=== PATIENT | female | born 1955 | race Caucasian/White ===

== ENCOUNTER 2020-09-12 00:29 | Observation (INO) ==
[2020-09-12 01:08] LABS: Basophils % 0.5 % (0.0-0.8); Eosinophils # 0.1 10*3/uL (0.0-0.87); Eosinophils % 1.4 % (0.00-10.9); Hematocrit 46.5 VOL% (35.7-47.0); Hemoglobin 15.9 GM/DL (12.0-16.0); Immature Granulocytes % 0.1 %; Immature Granulocytes Absolute 0.01 #; Mean Corpuscular HGB Conc 34.2 GM/DL (32-36); Mean Corpuscular Volume 92.8 FL (87-102); Mean Platelet Volume 8.8 FL (9.6-12.0); Monocytes % 8.5 % (1.7-12.7); Neutrophils % 51.5 % (38.7-73.9); Platelet Count 318 T/CUMM (130-400); Red Blood Count 5.01 MC/CUMM (3.8-5.5); Red Cell Distribution Width 15.3 % (9.3-17.3)
[2020-09-12] MEDS ORDERED: ALBUTEROL/IPRATROPIUM 3 ML NEB RESP TX STA ×2 (01:20→02:21)
[2020-09-12] MEDS ORDERED: methylPREDNISolone SOD SUC 125 MG/2 ML VIAL IV STA (01:20)
[2020-09-12 01:45] LABS: Albumin 3.7 G/DL (3.4-5.0); Bilirubin,Total 0.6 MG/DL (0.2-1.0); Calcium 9.9 MG/DL (8.5-10.1); Total Protein 7.8 G/DL (6.4-8.3)
[2020-09-12] MEDS ORDERED: MORPHINE 4 MG/1 ML VIAL IV STA (02:21)
[2020-09-12] MEDS ORDERED: ONDANSETRON 4 MG/2 ML VIAL IV ONE (02:21)
[2020-09-12] MEDS ORDERED: DEXTROSE 50% 25 GM/50 ML VIAL IV PRN (02:55)
[2020-09-12] MEDS ORDERED: ALBUTEROL 2.5 MG/3 ML NEB RESP TX PRN (02:55)
[2020-09-12] MEDS ORDERED: ONDANSETRON 4 MG/2 ML VIAL IV PRN (02:55)
[2020-09-12] MEDS ORDERED: ACETAMINOPHEN 325 MG TABLET PO PRN (02:55)
[2020-09-12] MEDS ORDERED: GLUCAGON 1 MG VIAL IM PRN (02:55)
[2020-09-12] MEDS ORDERED: DOCUSATE SODIUM 100 MG CAPSULE PO PRN (02:55)
[2020-09-12] MEDS ORDERED: AZITHROMYCIN INJ 500 MG in SODIUM CHLORIDE 0.9% 250 ML IV SCH (03:00)
[2020-09-12] MEDS ORDERED: MAGNESIUM SULF RIDER 4 GM in PREMIX 1 EACH IV PRN (03:00)
[2020-09-12] MEDS ORDERED: MAGNESIUM SULF RIDER 2 GM in PREMIX 1 EACH IV PRN (03:00)
[2020-09-12 03:13] VITALS: BP 147/82
[2020-09-12] MEDS ORDERED: ENOXAPARIN 40 MG/0.4 ML SYRINGE SUBCUT SCH (06:00)
[2020-09-12] MEDS ORDERED: LEVOTHYROXINE 112 MCG TABLET PO SCH (06:00)
[2020-09-12] MEDS: ALBUTEROL/IPRATROPIUM 3 ML NEB RESP TX SCH ×2 (07:35→14:01)
[2020-09-12] MEDS ORDERED: predniSONE 20 MG TABLET PO SCH (08:00)
[2020-09-12] MEDS ORDERED: FLUoxetine 20 MG CAPSULE PO SCH (09:00)
[2020-09-12] MEDS ORDERED: amLODIPine 5 MG TABLET PO SCH (09:00)
[2020-09-12] MEDS ORDERED: GABAPENTIN 400 MG CAPSULE PO SCH (09:00)
[2020-09-12] MEDS ORDERED: hydroCHLOROthiazide 25 MG TABLET PO SCH (09:00)
[2020-09-12] MEDS ORDERED: PANTOPRAZOLE 40 MG TABLET PO SCH (09:00)
[2020-09-12] MEDS: INSULIN LISPRO 100 UNIT/ML SUBCUT SCH ×2 (09:54→13:19)
[2020-09-12] MEDS: POTASSIUM CHLORIDE 20 MEQ TABLET PO PRN ×2 (09:54→13:20)
== END 2020-09-12 14:56 ==
LOC: N.ED 00:29 → N.EDINP 00:29 → N.TELEN 04:33
PROVIDERS: ADMIT Internal Medicine; ATTEND Internal Medicine

== ENCOUNTER 2021-02-21 16:38 | Inpatient (IN) ==
[2021-02-21 18:14] LABS: Basophils % 0.7 % (0.0-0.8); Eosinophils % 0.2 % (0.00-10.9); Hematocrit 59.9 VOL% (35.7-47.0); Immature Granulocytes % 0.2 %; Immature Granulocytes Absolute 0.01 #; Lymphocytes # 1.7 10*3/uL (1.4-4.0); Lymphocytes % 27.9 % (21.3-54.2); Mean Corpuscular HGB Conc 34.4 GM/DL (32-36); Mean Corpuscular Volume 91.7 FL (87-102); Mean Platelet Volume 10.3 FL (9.6-12.0); Monocytes % 12.4 % (1.7-12.7); Neutrophils % 58.6 % (38.7-73.9); Platelet Count 215 T/CUMM (130-400); Red Blood Count 6.53 MC/CUMM (3.8-5.5); Red Cell Distribution Width 18.4 % (9.3-17.3); White Blood Count 6.1 T/CUMM (4-12)
[2021-02-21 18:17] LABS: Hemoglobin 20.6 GM/DL (12.0-16.0)
[2021-02-21 18:19] LABS: Bilirubin,Urine Negative (Negative); Blood, Urine Negative (Negative); Glucose,Urine (UA) >=500 mg/dL (Negative); Hyaline Casts,Urine 3 /LPF (0-3); Ketones,Urine 80 mg/dL (Negative); Mucus,Urine Few /LPF (Occasional); Nitrite,Urine Negative (Negative); Protein,Urine 100 MG/DL; RBC,Urine <1 /HPF (0-4); Squamous Epithelial Cell,Urine Occasional /HPF (0-10); Urine Appearance CLEAR (Clear); Urine Color Yellow (Yellow); Urine Specific Gravity 1.021 (1.001-1.035)
[2021-02-21] MEDS ORDERED: SODIUM CHLORIDE 0.9% 1,000 ML IV STA (18:20)
[2021-02-21 18:22] LABS: Barbiturates Screen,Urine Negative (Negative); Benzodiazepines Screen,Urine Negative (Negative); Cannabinoid Screen,Urine Negative (Negative); Opiate Screen,Urine Negative (Negative); Phencyclidine Screen,Urine Negative (Negative)
[2021-02-21 18:48] LABS: INR 1.5; PT Patient Result 16.7 SECS (10.5-12.0); Partial Thromboplastin Time 32.4 SECS (23.9-33.8)
[2021-02-21 18:54] LABS: Alanine Aminotransferase 44 U/L (13-56); Albumin 4.1 G/DL (3.4-5.0); Alkaline Phosphatase 149 U/L (45-117); Aspartate Amino Transferase 46 U/L (0-37); Blood Urea Nitrogen 14 MG/DL (7-18); Calcium 10.9 MG/DL (8.5-10.1); Carbon Dioxide 22 MMOL/L (21-32); Estimated Glom Filtration Rate 54 ML/MIN; Glucose 55 MG/DL (74-106); Osmolality,Calculated 275.5 MOS/KG (273-304); Potassium 3.9 MMOL/L (3.5-5.1); Sodium 139 MMOL/L (136-145); Total Protein 8.2 G/DL (6.4-8.2)
[2021-02-21 19:20] LABS: Acetaminophen < 2.0 UG/ML (10-30); Salicylate < 2.8 MG/DL (2.8-20)
[2021-02-21] MEDS ORDERED: DEXTROSE 10% 250 ML IV ONE (20:16)
[2021-02-21] MEDS: DEXTROSE 10% 1,000 ML IV SCH (20:53)
[2021-02-21] MEDS ORDERED: POTASSIUM CHLORIDE 20 MEQ TABLET PO PRN (21:13)
[2021-02-21] MEDS ORDERED: MAGNESIUM SULF RIDER 4 GM/100 ML PREMIX IV PRN (21:13)
[2021-02-21] MEDS ORDERED: MAGNESIUM SULF RIDER 2 GM/50 ML PREMIX IV PRN (21:13)
[2021-02-21] MEDS ORDERED: DOCUSATE SODIUM 100 MG CAPSULE PO PRN (21:17)
[2021-02-21] MEDS ORDERED: ONDANSETRON 4 MG/2 ML VIAL IV PRN (21:17)
[2021-02-21] MEDS ORDERED: ACETAMINOPHEN 325 MG TABLET PO PRN (21:17)
[2021-02-21] MEDS ORDERED: DEXTROSE 50% 25 GM/50 ML VIAL IV PRN (21:17)
[2021-02-21] MEDS ORDERED: GLUCAGON 1 MG VIAL IM PRN (21:17)
[2021-02-21] MEDS: ENOXAPARIN 40 MG/0.4 ML SYRINGE SUBCUT SCH (23:27)
[2021-02-21] MEDS: SODIUM CHLORIDE 0.9% 1,000 ML IV SCH (23:27)
[2021-02-22 05:27] LABS: Basophils % 0.4 % (0.0-0.8); Eosinophils % 0.4 % (0.00-10.9); Hematocrit 47.8 VOL% (35.7-47.0); Immature Granulocytes % 0.2 %; Immature Granulocytes Absolute 0.01 #; Lymphocytes # 1.5 10*3/uL (1.4-4.0); Lymphocytes % 29.2 % (21.3-54.2); Mean Corpuscular HGB Conc 35.6 GM/DL (32-36); Mean Corpuscular Volume 89.3 FL (87-102); Mean Platelet Volume 10.4 FL (9.6-12.0); Monocytes % 15.6 % (1.7-12.7); Neutrophils % 54.2 % (38.7-73.9); Platelet Count 188 T/CUMM (130-400); Red Blood Count 5.35 MC/CUMM (3.8-5.5); White Blood Count 5.2 T/CUMM (4-12)
[2021-02-22 05:47] LABS: Calcium 9.6 MG/DL (8.5-10.1); Osmolality,Calculated 276.4 MOS/KG (273-304); Potassium 3.1 MMOL/L (3.5-5.1)
[2021-02-22 05:55] LABS: Lymphocytes 28 % (20-55); Platelet Estimate Adequate; Segmented Neutrophils 58 % (50-85); Total Cells Counted 100
[2021-02-22] MEDS: LEVOTHYROXINE 112 MCG TABLET PO SCH (06:02)
[2021-02-22] MEDS: SODIUM CHLORIDE 0.9% 1,000 ML IV SCH ×2 (07:46→08:34)
[2021-02-22] MEDS: INSULIN LISPRO 100 UNIT/ML SUBCUT SCH ×4 (07:52→21:22)
[2021-02-22] MEDS: DEXTROSE 10% 1,000 ML IV SCH (07:53)
[2021-02-22] MEDS: PANTOPRAZOLE 40 MG TABLET PO SCH (08:12)
[2021-02-22] MEDS: amLODIPine 5 MG TABLET PO SCH (08:12)
[2021-02-22] MEDS: FLUoxetine 20 MG CAPSULE PO SCH (09:41)
[2021-02-22] MEDS: SIMVASTATIN 10 MG TABLET PO SCH (21:23)
[2021-02-22] MEDS: ENOXAPARIN 40 MG/0.4 ML SYRINGE SUBCUT SCH (21:25)
[2021-02-23] MEDS: SODIUM CHLORIDE 0.9% 1,000 ML IV SCH ×2 (00:13→04:57)
[2021-02-23 06:11] LABS: Calcium 7.8 MG/DL (8.5-10.1); Osmolality,Calculated 282.7 MOS/KG (273-304); Risk Ratio 2.73; VLDL CHOLESTEROL 12.4 MG/DL
[2021-02-23 06:13] LABS: Potassium 2.4 MMOL/L (3.5-5.1)
[2021-02-23 06:20] LABS: Basophils % 0.8 % (0.0-0.8); Eosinophils % 0.8 % (0.00-10.9); Hematocrit 42.2 VOL% (35.7-47.0); Immature Granulocytes % 0.3 %; Immature Granulocytes Absolute 0.01 #; Lymphocytes # 1.3 10*3/uL (1.4-4.0); Mean Corpuscular HGB Conc 34.4 GM/DL (32-36); Mean Corpuscular Volume 92.1 FL (87-102); Mean Platelet Volume 10.7 FL (9.6-12.0); Monocytes % 14.7 % (1.7-12.7); Neutrophils % 48.4 % (38.7-73.9); Platelet Count 166 T/CUMM (130-400); Red Blood Count 4.58 MC/CUMM (3.8-5.5); Red Cell Distribution Width 16.8 % (9.3-17.3)
[2021-02-23] MEDS: LEVOTHYROXINE 112 MCG TABLET PO SCH (06:21)
[2021-02-23 06:30] LABS: Hemoglobin 14.5 GM/DL (12.0-16.0); White Blood Count 3.6 T/CUMM (4-12)
[2021-02-23] MEDS: INSULIN LISPRO 100 UNIT/ML SUBCUT SCH ×4 (07:10→20:46)
[2021-02-23] MEDS: amLODIPine 5 MG TABLET PO SCH (08:44)
[2021-02-23] MEDS: ASPIRIN CHEW 81 MG TABLET PO SCH (08:44)
[2021-02-23] MEDS: FLUoxetine 20 MG CAPSULE PO SCH ×2 (08:44→20:47)
[2021-02-23] MEDS: PANTOPRAZOLE 40 MG TABLET PO SCH (08:44)
[2021-02-23] MEDS: POTASSIUM CHLORIDE 20 MEQ TABLET PO SCH ×4 (08:44→20:47)
[2021-02-23] MEDS: buPROPion XL 150 MG TABLET PO SCH (14:59)
[2021-02-23] MEDS: CYPROHEPTADINE 4 MG TABLET PO SCH ×2 (14:59→20:47)
[2021-02-23] MEDS: DEXT 5% NACL 0.45% KCL 20 MEQ 20 MEQ/1,000 ML BAG IV SCH (16:16)
[2021-02-23 19:08] LABS: Calcium 9.8 MG/DL (8.5-10.1); Osmolality,Calculated 277.4 MOS/KG (273-304); Potassium 4.4 MMOL/L (3.5-5.1)
[2021-02-23] MEDS: ENOXAPARIN 40 MG/0.4 ML SYRINGE SUBCUT SCH (20:46)
[2021-02-23] MEDS: SIMVASTATIN 10 MG TABLET PO SCH (20:47)
[2021-02-24] MEDS: LEVOTHYROXINE 112 MCG TABLET PO SCH (06:03)
[2021-02-24] MEDS: INSULIN LISPRO 100 UNIT/ML SUBCUT SCH ×4 (08:59→22:22)
[2021-02-24] MEDS ORDERED: CHOLECALCIFEROL 1,000 UNIT TABLET PO SCH (09:00)
[2021-02-24] MEDS: amLODIPine 5 MG TABLET PO SCH (10:23)
[2021-02-24] MEDS: PANTOPRAZOLE 40 MG TABLET PO SCH (10:23)
[2021-02-24] MEDS: buPROPion XL 150 MG TABLET PO SCH (10:23)
[2021-02-24] MEDS: FLUoxetine 20 MG CAPSULE PO SCH (10:23)
[2021-02-24] MEDS: CYPROHEPTADINE 4 MG TABLET PO SCH (10:24)
[2021-02-24] MEDS: ASPIRIN CHEW 81 MG TABLET PO SCH (10:24)
[2021-02-24] MEDS: POTASSIUM CHLORIDE 20 MEQ TABLET PO SCH ×2 (10:24→22:46)
[2021-02-24] MEDS: DEXT 5% NACL 0.45% KCL 20 MEQ 20 MEQ/1,000 ML BAG IV SCH (10:28)
[2021-02-24] MEDS: ENOXAPARIN 40 MG/0.4 ML SYRINGE SUBCUT SCH (22:45)
[2021-02-24] MEDS: SIMVASTATIN 10 MG TABLET PO SCH (22:46)
[2021-02-24] MEDS: CHOLESTYRAMINE 4 GM PACK PO SCH (22:46)
[2021-02-25] MEDS: DEXT 5% NACL 0.45% KCL 20 MEQ 20 MEQ/1,000 ML BAG IV SCH (01:38)
[2021-02-25 05:24] LABS: Basophils % 0.5 % (0.0-0.8); Eosinophils % 0.5 % (0.00-10.9); Hematocrit 46.7 VOL% (35.7-47.0); Hemoglobin 16.1 GM/DL (12.0-16.0); Immature Granulocytes % 0.3 %; Immature Granulocytes Absolute 0.01 #; Lymphocytes # 1.5 10*3/uL (1.4-4.0); Lymphocytes % 39.5 % (21.3-54.2); Mean Corpuscular HGB Conc 34.5 GM/DL (32-36); Mean Corpuscular Volume 90.3 FL (87-102); Mean Platelet Volume 10.9 FL (9.6-12.0); Monocytes % 15.8 % (1.7-12.7); Neutrophils % 43.4 % (38.7-73.9); Platelet Count 184 T/CUMM (130-400); Red Blood Count 5.17 MC/CUMM (3.8-5.5); Red Cell Distribution Width 17.2 % (9.3-17.3); White Blood Count 3.8 T/CUMM (4-12)
[2021-02-25 05:36] LABS: Osmolality,Calculated 275.5 MOS/KG (273-304); Potassium 4.1 MMOL/L (3.5-5.1)
[2021-02-25 05:53] LABS: Band Neutrophils 1 % (0-10); Eosinophils 3 % (0-10); Hypochromasia Slight; Lymphocytes 41 % (20-55); Microcytosis 1+; Segmented Neutrophils 44 % (50-85); Total Cells Counted 100
[2021-02-25 05:54] LABS: Ovalocytes Slight; Platelet Estimate Adequate
[2021-02-25] MEDS: LEVOTHYROXINE 112 MCG TABLET PO SCH (06:08)
[2021-02-25 08:22] VITALS: BP 146/97
[2021-02-25] MEDS ORDERED: FLUoxetine 20 MG CAPSULE PO SCH (09:00)
[2021-02-25] MEDS: POTASSIUM CHLORIDE 20 MEQ TABLET PO SCH (09:06)
[2021-02-25] MEDS: CHOLESTYRAMINE 4 GM PACK PO SCH (09:06)
[2021-02-25] MEDS: ASPIRIN CHEW 81 MG TABLET PO SCH (09:06)
[2021-02-25] MEDS: PANTOPRAZOLE 40 MG TABLET PO SCH (09:06)
[2021-02-25] MEDS: amLODIPine 5 MG TABLET PO SCH (09:06)
[2021-02-25] MEDS: INSULIN LISPRO 100 UNIT/ML SUBCUT SCH (09:13)
[2021-02-25] MEDS ORDERED: hydroCHLOROthiazide 25 MG TABLET PO SCH (12:00)
== END 2021-02-25 12:10 | DRG 641 ==
LOC: N.ED 16:38 → N.EDINP 16:38 → SUATTDRO 20:13 → N.5E 21:19
PROVIDERS: ADMIT Student in an Organized Health Care Education/Training Program; ATTEND Hospitalist